=== PATIENT | female | born 1985 | race Caucasian/White ===

== ENCOUNTER 2016-05-24 10:25 | Emergency (ER) | payer OTHER ==
[~2016-05-24 10:25] MED LIST: BIRTH CONTROL PILL
== END 2016-05-24 10:51 | disposition home or self-care (01) ==
LOC: SED 10:25
DX: H60.92 Unspecified otitis externa, left ear (principal); F17.210 Nicotine dependence, cigarettes, uncomplicated
CPT/HCPCS: 99283